=== PATIENT | female | born 1980 | race Two or more races ===

== ENCOUNTER 2017-03-10 14:10 | Inpatient (IN) | payer MEDICAID ==
[~2017-03-10] VITALS: Ht 152.4 cm; Wt 64.9 kg
[~2017-03-10 14:10] MED LIST: SERT25TA84 PO
[2017-03-10 15:12] LABS: Basophils # (auto) 0 uL; Basophils % (auto) 0.5 % (0.0-2.0); CONDITION Y; DEFINITIVE SEE PRINTOUT; Eosinophils # (auto) 0.1 uL; Eosinophils % (auto) 0.6 % (0.0-7.0); Hematocrit 37.9 % (36.0-46.0); Hemoglobin 12.4 g/dL (12.2-16.2); Lymphocytes # (auto) 1.2 uL; Lymphocytes % (auto) 11.1 % (10.0-50.0); Mean Corpuscular Hemoglobin 25.7 pg (28.0-32.0); Mean Corpuscular Hgb Conc. 32.7 g/dL (32.0-36.0); Mean Corpuscular Volume 78.5 fL (80.0-100.0); Mean Platelet Volume 9.1 fL (7.4-10.4); Monocytes # (auto) 0.5 uL; Monocytes % (auto) 4.5 % (0.0-12.0); Neutrophils # (auto) 8.6 uL; Neutrophils % (auto) 83.3 % (37.0-80.0); Platelet Count (auto) 265 10^3/uL (140-450); Red Cell Distribution Width 16.7 % (11.6-16.0); White Blood Cell 10.4 10^3/uL (4.4-10.8)
[2017-03-10 15:30] LABS: Albumin 3.7 g/dL (3.4-5.0); BUN/Creatinine Ratio 23.3; Calcium 8.2 mg/dL (8.5-10.1); Potassium 3.9 mmol/L (3.5-5.1)
[2017-03-10 15:34] LABS: Bilirubin, Total 0.4 mg/dL (0.2-1.0)
[2017-03-10 18:21] LABS: Urine Bilirubin Negative (Negative); Urine Color Yellow (Yellow); Urine Glucose Normal (Normal); Urine Mucus FEW (None Seen); Urine Nitrite Negative (Negative); Urine RBC 122 /hpf (0 - 4); Urine Squamous Epithelial Cell FEW /hpf (<5)
[2017-03-10 18:23] LABS: Urine Blood 3+ /uL (Negative); Urine Ketone 2+ (Negative)
[2017-03-10] MEDS ORDERED: ONDANSETRON HCL 4 MG/2 ML VIAL IV ONE (18:30)
[2017-03-10] MEDS ORDERED: SODIUM CHLORIDE 0.9% 1,000 ML IV ONE (18:30)
[2017-03-10] MEDS ORDERED: HYDROmorphone HCL 2 MG/ML VL IV ONE (18:30)
[2017-03-10] MEDS ORDERED: cefTRIAXone 1GM/50ML D5W 50 ML IV ONE (19:00)
[2017-03-10] MEDS ORDERED: PROMETHAZINE HCL 25 MG/ML 1ML IV ONE (19:15)
[2017-03-10] MEDS: HYDROmorphone HCL 2 MG/ML VL IV PRN (21:46)
[2017-03-10] MEDS: SODIUM CHLORIDE 0.9% 1,000 ML IV SCH (21:46)
[2017-03-10] MEDS: ONDANSETRON HCL 4 MG/2 ML VIAL IV PRN ×2 (21:46→21:56)
[2017-03-10 22:00] VITALS: BP 112/70
[2017-03-11] VITALS (7 sets, daily range): BP systolic 77–110; BP diastolic 49–68
[2017-03-11] MEDS: HYDROmorphone HCL 2 MG/ML VL IV PRN ×2 (01:06→05:47)
[2017-03-11] MEDS: ONDANSETRON HCL 4 MG/2 ML VIAL IV PRN ×2 (01:43→05:47)
[2017-03-11] MEDS: SODIUM CHLORIDE 0.9% 1,000 ML IV SCH ×3 (04:21→17:31)
[2017-03-11 06:31] LABS: Basophils # (auto) 0 uL; CONDITION Y; DEFINITIVE SEE PRINTOUT; Eosinophils # (auto) 0 uL; Hematocrit 34.9 % (36.0-46.0); Hemoglobin 11.4 g/dL (12.2-16.2); Lymphocytes # (auto) 0.5 uL; Lymphocytes % (auto) 4.1 % (10.0-50.0); Mean Corpuscular Hemoglobin 25.9 pg (28.0-32.0); Mean Corpuscular Hgb Conc. 32.5 g/dL (32.0-36.0); Mean Corpuscular Volume 79.7 fL (80.0-100.0); Mean Platelet Volume 9.6 fL (7.4-10.4); Monocytes # (auto) 0.1 uL; Neutrophils # (auto) 11.1 uL; Neutrophils % (auto) 94.9 % (37.0-80.0); Platelet Count (auto) 215 10^3/uL (140-450); Red Cell Distribution Width 16.3 % (11.6-16.0); White Blood Cell 11.7 10^3/uL (4.4-10.8)
[2017-03-11 06:58] LABS: Albumin 3.1 g/dL (3.4-5.0); Calcium 7.4 mg/dL (8.5-10.1); Potassium 3.7 mmol/L (3.5-5.1)
[2017-03-11 07:02] LABS: BUN/Creatinine Ratio 15.5; Bilirubin, Total 0.8 mg/dL (0.2-1.0); Total Protein 6.2 g/dL (6.4-8.2)
[2017-03-11] MEDS: PANTOPRAZOLE SODIUM 40 MG/10 ML VIAL IV SCH (10:00)
[2017-03-11] MEDS: cefTRIAXone 1GM/50ML D5W 50 ML IV SCH (12:46)
[2017-03-11] MEDS ORDERED: GENTAMICIN PER PHARMACY 0 ML IV SCH (16:00)
[2017-03-11] MEDS: ALBUMIN 25% 100 ML IV SCH ×2 (16:00→17:00)
[2017-03-11] MEDS ORDERED: MANNITOL 20% SOLN 100 gm/500ml 300 ML IV ONE (16:00)
[2017-03-11] MEDS: GENTAMICIN SULFATE 260 MG in D5W 5% 100 ML IV ONE ×2 (17:00→20:03)
[2017-03-11] MEDS ORDERED: HYDROCORTISONE SOD SUCC 100 MG/2ML INJ VIAL IV ONE (19:00)
[2017-03-11 20:17] LABS: CONDITION Y; DEFINITIVE SEE PRINTOUT; Hematocrit 28.2 % (36.0-46.0); Hemoglobin 9.1 g/dL (12.2-16.2); Mean Corpuscular Hemoglobin 26.1 pg (28.0-32.0); Mean Corpuscular Hgb Conc. 32.5 g/dL (32.0-36.0); Mean Corpuscular Volume 80.3 fL (80.0-100.0); Mean Platelet Volume 9.6 fL (7.4-10.4); Platelet Count (auto) 142 10^3/uL (140-450); Red Cell Distribution Width 16.8 % (11.6-16.0); SUSPECT SEE PRINTOUT; White Blood Cell 12.5 10^3/uL (4.4-10.8)
[2017-03-11 20:41] LABS: Promyelocytes % 0; Reactive Lymphocytes 0
[2017-03-11 20:52] LABS: Hypochromia Slight; Metamyelocytes % 1; Myelocytes % 1; Platelet Estimate Decreased
[2017-03-11 20:53] LABS: Ovalocytes FEW
[2017-03-12] VITALS (9 sets, daily range): BP systolic 82–107; BP diastolic 51–73
[2017-03-12] MEDS ORDERED: cefTRIAXone 1GM/50ML D5W 50 ML IV ONE (00:45)
[2017-03-12] MEDS ORDERED: VANCOMYCIN 1GM/250ML D5W 250 ML IV ONE (00:45)
[2017-03-12] MEDS ORDERED: SODIUM CHLORIDE 0.9% 1,000 ML IV ONE (00:45)
[2017-03-12] MEDS: SODIUM CHLORIDE 0.9% 1,000 ML IV SCH ×4 (00:57→20:36)
[2017-03-12 06:28] LABS: INR 1.33 (0.9-1.15)
[2017-03-12 06:30] LABS: Prothrombin Time 14.5 sec (9.37-12.3)
[2017-03-12] MEDS: cefTRIAXone 1GM/50ML D5W 50 ML IV SCH (09:56)
[2017-03-12] MEDS: PANTOPRAZOLE SODIUM 40 MG/10 ML VIAL IV SCH (09:56)
[2017-03-12] MEDS: IBUPROFEN 800 MG TAB PO PRN ×2 (12:50→20:24)
[2017-03-12] MEDS ORDERED: HYDROmorphone HCL 2 MG/ML VL IV PRN (15:45)
[2017-03-12 19:16] LABS: CONDITION Y; DEFINITIVE SEE PRINTOUT; Hematocrit 26.8 % (36.0-46.0); Hemoglobin 8.9 g/dL (12.2-16.2); Mean Corpuscular Hemoglobin 26.1 pg (28.0-32.0); Mean Corpuscular Hgb Conc. 33.2 g/dL (32.0-36.0); Mean Corpuscular Volume 78.8 fL (80.0-100.0); Mean Platelet Volume 10.3 fL (7.4-10.4); Platelet Count (auto) 129 10^3/uL (140-450); Red Cell Distribution Width 17.6 % (11.6-16.0); SUSPECT SEE PRINTOUT
[2017-03-12 19:39] LABS: Metamyelocytes % 0; Myelocytes % 0; Promyelocytes % 0; Reactive Lymphocytes 0
[2017-03-12 20:02] LABS: Hypochromia Slight; Platelet Estimate Decreased
[2017-03-12 20:03] LABS: Burr Cells MODERATE
[2017-03-12 20:05] LABS: Ovalocytes FEW
[2017-03-12] MEDS ORDERED: GENTAMICIN SULFATE 260 MG in D5W 5% 100 ML IV SCH (21:00)
[2017-03-12] MEDS ORDERED: GENTAMICIN SULF 80 MG/2 ML VIAL ONE ×2 (21:43→21:56)
[2017-03-13] MEDS: IBUPROFEN 800 MG TAB PO PRN (02:14)
[2017-03-13] MEDS: ONDANSETRON HCL 4 MG/2 ML VIAL IV PRN (03:57)
[2017-03-13 04:46] VITALS: BP 111/78
[2017-03-13] MEDS: SODIUM CHLORIDE 0.9% 1,000 ML IV SCH (06:19)
[2017-03-13 06:30] LABS: INR 0.98 (0.9-1.15); Partial Thromboplastin Time 27.8 sec (22.64-33.71); Prothrombin Time 10.7 sec (9.37-12.3)
[2017-03-13 06:36] LABS: Calcium 7.4 mg/dL (8.5-10.1); Potassium 3.3 mmol/L (3.5-5.1)
[2017-03-13 06:39] LABS: BUN/Creatinine Ratio 12.5
[2017-03-13 06:42] LABS: Basophils # (auto) 0 uL; CONDITION Y; DEFINITIVE SEE PRINTOUT; Eosinophils # (auto) 0 uL; Hematocrit 30.4 % (36.0-46.0); Hemoglobin 9.9 g/dL (12.2-16.2); Lymphocytes # (auto) 0.3 uL; Lymphocytes % (auto) 3.9 % (10.0-50.0); Mean Corpuscular Hemoglobin 25.8 pg (28.0-32.0); Mean Corpuscular Hgb Conc. 32.5 g/dL (32.0-36.0); Mean Corpuscular Volume 79.3 fL (80.0-100.0); Mean Platelet Volume 10.6 fL (7.4-10.4); Monocytes # (auto) 0.1 uL; Monocytes % (auto) 1.6 % (0.0-12.0); Neutrophils # (auto) 6.3 uL; Neutrophils % (auto) 94.5 % (37.0-80.0); Platelet Count (auto) 119 10^3/uL (140-450); Red Cell Distribution Width 17.7 % (11.6-16.0); SUSPECT SEE PRINTOUT; White Blood Cell 6.7 10^3/uL (4.4-10.8)
[2017-03-13 08:40] VITALS: BP 103/77
[2017-03-13] MEDS: cefTRIAXone 1GM/50ML D5W 50 ML IV SCH (08:47)
[2017-03-13] MEDS ORDERED: SODIUM CHLORIDE 0.9% 1,000 ML IV SCH (11:13)
[2017-03-13] MEDS ORDERED: POTASSIUM CHL 20 Meq TABLET PO ONE (11:15)
== END 2017-03-13 12:20 | disposition left against medical advice (07) | DRG 465 ==
LOC: ER 14:14 → CENTRAL 14:15 → TELE-CENTR 03-12 01:11
PROVIDERS: ADMIT Family Medicine; ATTEND Hospitalist
DX: N23 Unspecified renal colic (principal); N13.6 Pyonephrosis; E86.0 Dehydration; F17.210 Nicotine dependence, cigarettes, uncomplicated; Z82.49 Family history of ischemic heart disease and other diseases of the circulatory system; Z83.3 Family history of diabetes mellitus; Z87.442 Personal history of urinary calculi; F32.9 Major depressive disorder, single episode, unspecified; F41.9 Anxiety disorder, unspecified; Z88.1 Allergy status to other antibiotic agents; Z71.89 Other specified counseling; Z53.21 Procedure and treatment not carried out due to patient leaving prior to being seen by health care provider
CPT/HCPCS: 36415; 74000; 74176; 76830; 76856; 80048; 80053; 80170; 81001; 81025; 82962; 85007; 85025; 85027; 85610; 85730; 87040; 87086; 96361; 96365; 96375; C9113; J0696; J2405; J7060

== ENCOUNTER 2017-03-14 05:57 | Inpatient (IN) | payer MEDICAID ==
[~2017-03-14] VITALS: Ht 152.4 cm; Wt 55.6 kg
[2017-03-14 10:20] LABS: Basophils # (auto) 0 uL; Basophils % (auto) 0.2 % (0.0-2.0); CONDITION Y; DEFINITIVE SEE PRINTOUT; Eosinophils # (auto) 0 uL; Hematocrit 32.9 % (36.0-46.0); Hemoglobin 10.8 g/dL (12.2-16.2); Lymphocytes # (auto) 0.5 uL; Lymphocytes % (auto) 6.1 % (10.0-50.0); Mean Corpuscular Hemoglobin 25.8 pg (28.0-32.0); Mean Corpuscular Hgb Conc. 32.8 g/dL (32.0-36.0); Mean Corpuscular Volume 78.6 fL (80.0-100.0); Mean Platelet Volume 9.7 fL (7.4-10.4); Monocytes # (auto) 0.2 uL; Monocytes % (auto) 2.2 % (0.0-12.0); Neutrophils # (auto) 7.8 uL; Neutrophils % (auto) 91.5 % (37.0-80.0); Platelet Count (auto) 158 10^3/uL (140-450); SUSPECT SEE PRINTOUT; White Blood Cell 8.5 10^3/uL (4.4-10.8)
[2017-03-14] MEDS ORDERED: SODIUM CHLORIDE 0.9% 1,000 ML IVB ONE (10:23)
[2017-03-14] MEDS ORDERED: HYDROmorphone HCL 2 MG/ML VL IV ONE ×2 (10:30→12:45)
[2017-03-14] MEDS ORDERED: ONDANSETRON HCL 4 MG/2 ML VIAL IV ONE ×2 (10:30→12:45)
[2017-03-14 10:39] LABS: Albumin 2.7 g/dL (3.4-5.0); BUN/Creatinine Ratio 13.3; Calcium 8.7 mg/dL (8.5-10.1)
[2017-03-14 10:42] LABS: Bilirubin, Total 0.5 mg/dL (0.2-1.0); Total Protein 6.2 g/dL (6.4-8.2)
[2017-03-14 11:00] LABS: Potassium 3.2 mmol/L (3.5-5.1)
[2017-03-14] MEDS ORDERED: TEMAZEPAM 15 MG CAP PO PRN (13:00)
[2017-03-14] MEDS ORDERED: POTASSIUM CHL 10 Meq TABLET PO ONE (13:00)
[2017-03-14] MEDS ORDERED: cefTRIAXone 1GM/50ML D5W 50 ML IV ONE (13:00)
[2017-03-14] MEDS ORDERED: ACETAMINOPHEN 325 MG TAB PO PRN (13:00)
[2017-03-14] MEDS ORDERED: DOCUSATE SOD 100 MG CAP PO PRN (13:00)
[2017-03-14 13:22] LABS: INR 0.95 (0.9-1.15); Prothrombin Time 10.3 sec (9.37-12.3)
[2017-03-14] MEDS: FAMOTIDINE 20 MG TAB PO SCH ×2 (13:31→22:12)
[2017-03-14] MEDS: SODIUM CHLORIDE 0.9% 1,000 ML IV SCH ×2 (13:31→21:14)
[2017-03-14] MEDS: ONDANSETRON HCL 4 MG/2 ML VIAL IV PRN ×3 (15:54→20:09)
[2017-03-14] MEDS: HYDROcodone-ACET 5/325MG TAB PO PRN ×2 (15:54→21:28)
[2017-03-14 16:49] LABS: Urine Bilirubin Negative (Negative); Urine Color Yellow (Yellow); Urine Glucose Normal (Normal); Urine Ketone Negative (Negative); Urine Nitrite Negative (Negative); Urine RBC 394 /hpf (0 - 4); Urine Squamous Epithelial Cell FEW /hpf (<5); Urine Urobilinogen Normal (Negative); Urine pH 6.5 (5.0-8.0)
[2017-03-14 16:51] LABS: Urine Blood 2+ /uL (Negative)
[2017-03-14] MEDS: BOOST PLUS 8 ounce PO SCH ×2 (18:04→22:00)
[2017-03-14 22:00] VITALS: BP 122/82
[2017-03-14 22:30] VITALS: BP 122/82
[2017-03-14] MEDS: HYDROmorphone HCL 2 MG/ML VL IV PRN (23:02)
[2017-03-15] MEDS: HYDROmorphone HCL 2 MG/ML VL IV PRN (04:56)
[2017-03-15 05:00] VITALS: BP 132/80
[2017-03-15] MEDS: SODIUM CHLORIDE 0.9% 1,000 ML IV SCH ×3 (05:32→22:12)
[2017-03-15 06:21] LABS: Basophils # (auto) 0 uL; Basophils % (auto) 0.7 % (0.0-2.0); CONDITION Y; DEFINITIVE SEE PRINTOUT; Eosinophils # (auto) 0.3 uL; Hematocrit 28.9 % (36.0-46.0); Lymphocytes # (auto) 1.1 uL; Lymphocytes % (auto) 17.5 % (10.0-50.0); Mean Corpuscular Hemoglobin 26.8 pg (28.0-32.0); Mean Corpuscular Hgb Conc. 34.7 g/dL (32.0-36.0); Mean Corpuscular Volume 77.4 fL (80.0-100.0); Mean Platelet Volume 9.6 fL (7.4-10.4); Monocytes # (auto) 0.7 uL; Monocytes % (auto) 10.5 % (0.0-12.0); Neutrophils # (auto) 4.4 uL; Neutrophils % (auto) 67.3 % (37.0-80.0); Platelet Count (auto) 139 10^3/uL (140-450); Red Cell Distribution Width 16.9 % (11.6-16.0); White Blood Cell 6.6 10^3/uL (4.4-10.8)
[2017-03-15 06:27] LABS: Albumin 2.4 g/dL (3.4-5.0); BUN/Creatinine Ratio 16.7; Bilirubin, Total 0.4 mg/dL (0.2-1.0); Calcium 7.8 mg/dL (8.5-10.1); Total Protein 5.2 g/dL (6.4-8.2)
[2017-03-15] MEDS: BOOST PLUS 8 ounce PO SCH ×4 (07:35→21:27)
[2017-03-15] MEDS: ONDANSETRON HCL 4 MG/2 ML VIAL IV PRN (07:39)
[2017-03-15 08:30] VITALS: BP 122/72
[2017-03-15] MEDS: cefTRIAXone 1GM/50ML D5W 50 ML IV SCH (09:03)
[2017-03-15] MEDS: MULTIPLE VITAMIN TAB PO SCH (10:44)
[2017-03-15] MEDS: FAMOTIDINE 20 MG TAB PO SCH ×2 (10:45→21:25)
[2017-03-15 12:30] VITALS: BP 129/77
[2017-03-15] MEDS ORDERED: POTASSIUM CHL 20 Meq TABLET PO ONE (16:00)
[2017-03-15 17:04] VITALS: BP 121/67
[2017-03-15 20:00] VITALS: BP 122/72
[2017-03-15 22:32] VITALS: BP 122/72
[2017-03-16] VITALS (7 sets, daily range): BP systolic 107–142; BP diastolic 69–89
[2017-03-16] MEDS: BOOST PLUS 8 ounce PO SCH ×3 (05:50→17:52)
[2017-03-16 06:27] LABS: Basophils # (auto) 0 uL; Basophils % (auto) 0.5 % (0.0-2.0); CONDITION Y; DEFINITIVE SEE PRINTOUT; Eosinophils # (auto) 0.2 uL; Eosinophils % (auto) 3.6 % (0.0-7.0); Hematocrit 31.9 % (36.0-46.0); Hemoglobin 10.5 g/dL (12.2-16.2); Lymphocytes # (auto) 1.2 uL; Lymphocytes % (auto) 24.2 % (10.0-50.0); Mean Corpuscular Hemoglobin 25.8 pg (28.0-32.0); Mean Corpuscular Volume 78.2 fL (80.0-100.0); Mean Platelet Volume 9.2 fL (7.4-10.4); Monocytes # (auto) 0.8 uL; Monocytes % (auto) 15.4 % (0.0-12.0); Neutrophils # (auto) 2.9 uL; Neutrophils % (auto) 56.3 % (37.0-80.0); Platelet Count (auto) 178 10^3/uL (140-450); Red Cell Distribution Width 16.9 % (11.6-16.0); White Blood Cell 5.1 10^3/uL (4.4-10.8)
[2017-03-16] MEDS: SODIUM CHLORIDE 0.9% 1,000 ML IV SCH ×2 (06:50→14:47)
[2017-03-16 07:02] LABS: Albumin 2.6 g/dL (3.4-5.0)
[2017-03-16 07:06] LABS: Bilirubin, Total 0.3 mg/dL (0.2-1.0); Total Protein 5.9 g/dL (6.4-8.2)
[2017-03-16] MEDS ORDERED: ceFAZolin 1GM/50ML D5W 50 ML IV ONE (07:08)
[2017-03-16] MEDS ORDERED: fentaNYL CITRATE 100 MCG/2 ML VL ONE (07:14)
[2017-03-16] MEDS ORDERED: MIDAZOLAM HCL 1MG/1ML-2 ML VIAL ONE (07:14)
[2017-03-16] MEDS ORDERED: HYDROmorphone HCL 2 MG/ML VL IV PRN (08:15)
[2017-03-16] MEDS ORDERED: MORPHINE SULF INJ 2 MG/ML SYRINGE 1ML IV PRN (08:15)
[2017-03-16] MEDS ORDERED: MANNITOL FTV 25% 12.5 GM/50 ML 50 ML IV ONE (08:15)
[2017-03-16] MEDS ORDERED: ONDANSETRON HCL 4 MG/2 ML VIAL IV ONE (08:15)
[2017-03-16] MEDS ORDERED: ePHEDrine SULFATE 50 MG/ML AMP IV PRN (08:15)
[2017-03-16] MEDS ORDERED: KETOROLAC TROMETH 30 MG/ML 1ML VIAL IV ONE (08:15)
[2017-03-16] MEDS ORDERED: MIDAZOLAM HCL 1MG/1ML-2 ML VIAL IV PRN (08:15)
[2017-03-16] MEDS ORDERED: LABETALOL HCL 5 MG/ML 4ML SYRINGE IV PRN (08:15)
[2017-03-16] MEDS ORDERED: PROPOFOL 10 MG/ML 20 ML IV ONE (08:28)
[2017-03-16] MEDS ORDERED: DEXAMETHASONE SOD PHOS 10MG/1ML VIAL INJ ONE (08:28)
[2017-03-16] MEDS: cefTRIAXone 1GM/50ML D5W 50 ML IV SCH (10:10)
[2017-03-16] MEDS: FAMOTIDINE 20 MG TAB PO SCH (10:10)
[2017-03-16] MEDS: MULTIPLE VITAMIN TAB PO SCH (10:11)
== END 2017-03-16 21:50 | disposition home or self-care (01) | DRG 465 ==
LOC: EDBD 05:57 → ER 05:57 → OVERFLOW 05:58 → WEST WING 21:05
PROVIDERS: ADMIT Internal Medicine; ATTEND Internal Medicine
PROC: 0TF7XZZ Fragmentation in Left Ureter, External Approach (ICD-10-PCS; principal; 2017-03-16 07:25)
DX: N13.2 Hydronephrosis with renal and ureteral calculous obstruction (principal); E43 Unspecified severe protein-calorie malnutrition; Z68.23 Body mass index [BMI] 23.0-23.9, adult; E87.6 Hypokalemia; F17.210 Nicotine dependence, cigarettes, uncomplicated; F32.9 Major depressive disorder, single episode, unspecified; F41.9 Anxiety disorder, unspecified; Z82.49 Family history of ischemic heart disease and other diseases of the circulatory system; Z83.3 Family history of diabetes mellitus; Z88.1 Allergy status to other antibiotic agents; Z71.89 Other specified counseling; N28.1 Cyst of kidney, acquired
CPT/HCPCS: 36415; 80053; 81001; 84702; 85025; 85610; 87040; 87081; 87086; 94761; 96361; 96365; 96375; J0690; J0696; J1100; J2250; J2405; J2704

== ENCOUNTER 2022-01-02 07:20 | Emergency (ER) | payer MEDICAID ==
[~2022-01-02] VITALS: Ht 152.4 cm; Wt 57.2 kg
[2022-01-02 07:55] LABS: Basophils # (auto) 0.1 10 ^3/uL (0-0.2); Basophils % (auto) 1.3 % (0.0-2.0); Eosinophils # (auto) 0.3 10 ^3/uL (0-0.8); Hematocrit 36.7 % (36.0-46.0); Hemoglobin 12.6 g/dL (12.2-16.2); Lymphocytes # (auto) 1.8 10 ^3/uL (0.4-5.4); Lymphocytes % (auto) 33.3 % (10.0-50.0); Mean Corpuscular Hemoglobin 27.8 pg (28.0-32.0); Mean Corpuscular Hgb Conc. 34.3 g/dL (32.0-36.0); Mean Corpuscular Volume 80.9 fL (80.0-100.0); Monocytes # (auto) 0.5 10 ^3/uL (0-1.3); Monocytes % (auto) 9.2 % (0.0-12.0); Neutrophils # (auto) 2.7 10 ^3/uL (1.6-8.6); Neutrophils % (auto) 50.2 % (37.0-80.0); Nucleated Red Blood Cells % 0.2 %; Red Blood Cells 4.53 10^6/uL (4.0-5.20); Red Cell Distribution Width 16.7 % (11.8-14.3); White Blood Cell 5.4 10^3/uL (4.4-10.8)
[2022-01-02] MEDS ORDERED: SODIUM CHLORIDE 0.9% 1,000 ML IV ONE ×3 (08:00→11:00)
[2022-01-02 08:05] LABS: Urine Bacteria FEW /hpf (None Seen); Urine Blood 1+ /uL (Negative); Urine Mucus FEW (None Seen); Urine Specific Gravity 1.018 (1.001-1.035); Urine WBC 10 /hpf (0 - 5)
[2022-01-02 08:12] LABS: Albumin 3.4 g/dL (3.4-5.0); Calcium 8.4 mg/dL (8.5-10.1); Potassium 4.3 mmol/L (3.5-5.1)
[2022-01-02] MEDS ORDERED: KETOROLAC TROMETH 30 MG/ML 1ML VIAL IV ONE ×2 (08:15→11:00)
[2022-01-02] MEDS ORDERED: ONDANSETRON HCL 4 MG/2 ML VIAL IV ONE (08:15)
[2022-01-02 08:16] LABS: Bilirubin, Total 0.2 mg/dL (0.2-1.0); Total Protein 6.8 g/dL (6.4-8.2)
[2022-01-02] MEDS ORDERED: IBU600T PO (10:58)
[2022-01-02] MEDS ORDERED: TAM04C PO (10:58)
[2022-01-02 11:00] VITALS: BP 124/5
[2022-01-02] MEDS ORDERED: TAMSULOSIN HYDROCHLORIDE 0.4 MG CAP PO ONE (11:00)
[2022-01-02] MEDS ORDERED: FUROSEMIDE 20 MG/2 ML VIAL IV ONE (11:00)
== END 2022-01-02 11:24 | disposition home or self-care (01) ==
LOC: ER 07:20
DX: N13.30 Unspecified hydronephrosis (principal); N20.9 Urinary calculus, unspecified
CPT/HCPCS: 36415; 74176; 80053; 81001; 85025; 96361; 96374; 96375; 99284; J1885; J2405; J7030

== ENCOUNTER 2023-02-27 01:23 | Emergency (ER) | payer MEDICAID ==
[~2023-02-27] VITALS: Ht 152.4 cm; Wt 54.0 kg
[~2023-02-27 01:23] MED LIST changes: +IBU600T PO; +TAMS-35 PO
[2023-02-27 02:16] LABS: Basophils # (auto) 0 10 ^3/uL (0-0.2); Eosinophils # (auto) 0.1 10 ^3/uL (0-0.8); Eosinophils % (auto) 1.9 % (0.0-7.0); Hemoglobin 13.7 g/dL (12.2-16.2); Monocytes # (auto) 0.3 10 ^3/uL (0-1.3); Neutrophils % (auto) 86.8 % (37.0-80.0); Nucleated Red Blood Cells % 0.1 %
[2023-02-27 02:17] LABS: Basophils % (auto) 0.2 % (0.0-2.0); Hematocrit 41.8 % (36.0-46.0); Lymphocytes # (auto) 0.4 10 ^3/uL (0.4-5.4); Lymphocytes % (auto) 6.5 % (10.0-50.0); Mean Corpuscular Hgb Conc. 32.8 g/dL (32.0-36.0); Mean Corpuscular Volume 82.4 fL (80.0-100.0); Monocytes % (auto) 4.6 % (0.0-12.0); Neutrophils # (auto) 5.8 10 ^3/uL (1.6-8.6); Red Blood Cells 5.08 10^6/uL (4.0-5.20); Red Cell Distribution Width 16.6 % (11.8-14.3); White Blood Cell 6.7 10^3/uL (4.4-10.8)
[2023-02-27 02:20] LABS: Albumin 3.4 g/dL (3.4-5.0); Calcium 8.5 mg/dL (8.5-10.1); Potassium 3.8 mmol/L (3.5-5.1)
[2023-02-27 02:22] LABS: BUN/Creatinine Ratio 8.7 (10.0-20.0)
[2023-02-27 02:25] LABS: Bilirubin, Total 0.7 mg/dL (0.2-1.0); Total Protein 6.6 g/dL (6.4-8.2)
[2023-02-27 02:47] LABS: Urine Bacteria MOD /hpf (None Seen); Urine Blood TRACE /uL (Negative); Urine Mucus FEW (None Seen); Urine Specific Gravity 1.017 (1.001-1.035); Urine WBC 582 /hpf (0 - 5); Urine WBC Clumps PRESENT /hpf (None Seen)
[2023-02-27] MEDS ORDERED: PIPERACILLIN-TAZOB 3.375GM 100 ML IV ONE (03:30)
[2023-02-27] MEDS ORDERED: SODIUM CHLORIDE 0.9% 1,000 ML IV ONE (03:30)
[2023-02-27] MEDS ORDERED: IBUP-1456 PO (04:06)
[2023-02-27] MEDS ORDERED: CEPH500T PO (04:06)
[2023-02-27] MEDS ORDERED: ZOFR4T PO (04:06)
[2023-02-27] MEDS ORDERED: TAMS-35 PO (04:06)
[2023-02-27 07:56] VITALS: BP 106/72
== END 2023-02-27 04:13 | disposition home or self-care (01) ==
LOC: ER 01:23
DX: N23 Unspecified renal colic (principal); N39.0 Urinary tract infection, site not specified; F17.210 Nicotine dependence, cigarettes, uncomplicated; Z87.442 Personal history of urinary calculi; Z88.1 Allergy status to other antibiotic agents
CPT/HCPCS: 36415; 74176; 80053; 81001; 83690; 84702; 85025

== ENCOUNTER 2023-07-01 01:17 | Inpatient (IN) | payer MEDICAID ==
[~2023-07-01] VITALS: Ht 152.4 cm; Wt 55.7 kg
[~2023-07-01 01:17] MED LIST changes: +CEPH500T PO; +IBUP-1456 PO; +ZOFR4T PO
[2023-07-01] MEDS ORDERED: KETOROLAC TROMETH 30 MG/ML 1ML VIAL IV ONE (02:15)
[2023-07-01 02:38] LABS: Basophils # (auto) 0.1 10 ^3/uL (0-0.2); Eosinophils # (auto) 0.4 10 ^3/uL (0-0.8); Monocytes # (auto) 0.4 10 ^3/uL (0-1.3); Neutrophils # (auto) 3.9 10 ^3/uL (1.6-8.6)
[2023-07-01 02:40] LABS: Basophils % (auto) 1.4 % (0.0-2.0); Eosinophils % (auto) 6.7 % (0.0-7.0); Hematocrit 39.3 % (36.0-46.0); Hemoglobin 12.5 g/dL (12.2-16.2); Lymphocytes # (auto) 1.5 10 ^3/uL (0.4-5.4); Lymphocytes % (auto) 23.6 % (10.0-50.0); Mean Corpuscular Hemoglobin 26.3 pg (28.0-32.0); Mean Corpuscular Hgb Conc. 31.7 g/dL (32.0-36.0); Mean Corpuscular Volume 82.8 fL (80.0-100.0); Monocytes % (auto) 6.4 % (0.0-12.0); Neutrophils % (auto) 61.9 % (37.0-80.0); Red Blood Cells 4.74 10^6/uL (4.0-5.20); White Blood Cell 6.3 10^3/uL (4.4-10.8)
[2023-07-01 02:54] LABS: Alanine Aminotransferase 15 U/L (7-40); Albumin 4.5 g/dL (3.2-4.8); Alkaline Phosphatase 85 U/L (46-116); Anion Gap 8 (5-15); Aspartate Aminotransferase 19 U/L (13-40); BUN/Creatinine Ratio 18.3 (10.0-20.0); Bilirubin, Total 0.3 mg/dL (0.2-1.0); Blood Urea Nitrogen 11 mg/dL (9-23); Calcium 8.7 mg/dL (8.7-10.4); Carbon Dioxide 23 mmol/L (20-30); Chloride 105 mmol/L (98-107); Glucose 98 mg/dL (74-106); Potassium 3.5 mmol/L (3.5-5.1); Sodium 136 mmol/L (136-145)
[2023-07-01] MEDS ORDERED: ONDANSETRON HCL 4 MG/2 ML VIAL IV ONE (03:00)
[2023-07-01 03:53] LABS: Urine Bacteria FEW /hpf (None Seen); Urine Blood 2+ /uL (Negative); Urine Clarity HAZY (Clear); Urine Color Yellow (Yellow); Urine Mucus FEW (None Seen); Urine Protein, UAD TRACE (Negative); Urine Specific Gravity 1.022 (1.001-1.035); Urine Urobilinogen Normal (Negative); Urine WBC 97 /hpf (0 - 5)
[2023-07-01] MEDS ORDERED: CEFTRIAXONE SODIUM 2 GM in D5W 5% 100 ML IV ONE (05:30)
[2023-07-01] MEDS ORDERED: SODIUM CHLORIDE 0.9% 500 ML IV ONE (06:00)
[2023-07-01] MEDS ORDERED: cefTRIAXone SOD 1,000 MG VL ONE (06:32)
[2023-07-01] MEDS ORDERED: ACETAMINOPHEN 325 MG TAB PO PRN (09:00)
[2023-07-01] MEDS ORDERED: cefTRIAXone 1GM/50ML D5W 50 ML IV SCH (09:00)
[2023-07-01] MEDS ORDERED: ONDANSETRON HCL 4 MG/2 ML VIAL IV PRN (09:00)
[2023-07-01] MEDS ORDERED: SODIUM CHLORIDE 0.9% 1,000 ML IV ONE (09:00)
[2023-07-01] MEDS ORDERED: IBUPROFEN 600 MG TAB PO PRN (09:00)
[2023-07-01] MEDS ORDERED: DOCUSATE SOD 100 MG CAP PO PRN (09:00)
[2023-07-01] MEDS ORDERED: traMADol HCL 50 MG TAB PO ONE (09:00)
[2023-07-01] MEDS ORDERED: FLUT50SP NAS (10:10)
[2023-07-01 11:47] VITALS: O2SAT 98
[2023-07-01 12:00] VITALS: BP 129/75; PULSE 82; RESP 19; TEMP 97.4; O2SAT 93
[2023-07-01 13:00] VITALS: BP 129/75; PULSE 82; RESP 19; TEMP 97.4; O2SAT 93
[2023-07-01] MEDS ORDERED: traMADol HCL 50 MG TAB PO PRN (15:00)
[2023-07-01 17:12] VITALS: BP 130/83; PULSE 75; RESP 18; TEMP 97.6; O2SAT 100
[2023-07-01] MEDS ORDERED: TAMSULOSIN HYDROCHLORIDE 0.4 MG CAP PO SCH (18:00)
[2023-07-01 22:00] VITALS: BP 130/75; PULSE 67; RESP 16; TEMP 97.7; O2SAT 98
[2023-07-02 05:00] VITALS: BP 123/75; PULSE 74; RESP 16; TEMP 98.3; O2SAT 97
[2023-07-02 06:08] LABS: Basophils # (auto) 0 10 ^3/uL (0-0.2); Eosinophils # (auto) 0.4 10 ^3/uL (0-0.8); Mean Corpuscular Hemoglobin 26.8 pg (28.0-32.0); Monocytes # (auto) 0.4 10 ^3/uL (0-1.3); White Blood Cell 6.2 10^3/uL (4.4-10.8)
[2023-07-02 06:10] LABS: Basophils % (auto) 0.6 % (0.0-2.0); Eosinophils % (auto) 6.1 % (0.0-7.0); Hematocrit 32.5 % (36.0-46.0); Hemoglobin 10.5 g/dL (12.2-16.2); Lymphocytes # (auto) 1.2 10 ^3/uL (0.4-5.4); Lymphocytes % (auto) 18.8 % (10.0-50.0); Mean Corpuscular Hgb Conc. 32.4 g/dL (32.0-36.0); Mean Corpuscular Volume 82.7 fL (80.0-100.0); Monocytes % (auto) 5.9 % (0.0-12.0); Neutrophils # (auto) 4.2 10 ^3/uL (1.6-8.6); Neutrophils % (auto) 68.6 % (37.0-80.0); Red Blood Cells 3.93 10^6/uL (4.0-5.20)
[2023-07-02 06:38] LABS: Alanine Aminotransferase 16 U/L (7-40); Alkaline Phosphatase 77 U/L (46-116); Anion Gap 6 (5-15); BUN/Creatinine Ratio 9.8 (10.0-20.0); Blood Urea Nitrogen 5 mg/dL (9-23); Calcium 8.4 mg/dL (8.7-10.4); Carbon Dioxide 26 mmol/L (20-30); Chloride 106 mmol/L (98-107); Glucose 86 mg/dL (74-106); Potassium 3.6 mmol/L (3.5-5.1); Sodium 138 mmol/L (136-145)
[2023-07-02 06:39] LABS: Albumin 3.7 g/dL (3.2-4.8); Aspartate Aminotransferase 22 U/L (13-40)
[2023-07-02 06:40] LABS: Bilirubin, Total 0.5 mg/dL (0.2-1.0); Total Protein 5.7 g/dL (5.7-8.2)
[2023-07-02 09:00] VITALS: BP 103/62; PULSE 74; RESP 15; TEMP 98.4; O2SAT 97
[2023-07-02] MEDS ORDERED: cefTRIAXone 1GM/50ML D5W 50 ML IV SCH (09:00)
[2023-07-02] MEDS ORDERED: SODIUM CHLORIDE 0.9% 1,000 ML IV SCH (10:30)
[2023-07-02 13:00] VITALS: BP 118/76; PULSE 71; RESP 18; TEMP 98.6; O2SAT 97
[2023-07-02] MEDS ORDERED: CIPR-273 PO (13:43)
[2023-07-02 15:24] VITALS: TEMP 37
== END 2023-07-02 17:30 | disposition home or self-care (01) | DRG 463 ==
LOC: ER 01:17 → OVERFLOW 08:59 → WEST WING 11:34
PROVIDERS: ADMIT Nurse Practitioner Family; ATTEND Nurse Practitioner Family
DX: N13.6 Pyonephrosis (principal); F17.210 Nicotine dependence, cigarettes, uncomplicated; N10 Acute pyelonephritis; N20.0 Calculus of kidney; F32.A Depression, unspecified; F41.9 Anxiety disorder, unspecified; Z87.442 Personal history of urinary calculi; Z88.8 Allergy status to other drugs, medicaments and biological substances; Z79.899 Other long term (current) drug therapy; Z82.49 Family history of ischemic heart disease and other diseases of the circulatory system; Z83.3 Family history of diabetes mellitus
CPT/HCPCS: 36415; 74018; 74176; 80053; 81001; 81025; 85025; 87086; 87088; 87186; 96361; 96374; 96375; G0378; J0696; J1885; J2405; J7060